=== PATIENT | male | born 1975 | race African-American/Black ===

== ENCOUNTER 2017-07-27 19:14 | Emergency (ER) | payer MEDICAID ==
[~2017-07-27] VITALS: Ht 193 cm; Wt 87.0 kg
[2017-07-27] MEDS ORDERED: IBUPROFEN 800MG TABLET PO ONE (19:45)
[2017-07-27 20:29] VITALS: BP 144/84
== END 2017-07-27 20:28 | disposition home or self-care (01) ==
LOC: ER 19:25
DX: R07.89 Other chest pain (principal); F10.10 Alcohol abuse, uncomplicated; Z02.89 Encounter for other administrative examinations; V89.2XXA Person injured in unspecified motor-vehicle accident, traffic, initial encounter; Y93.89 Activity, other specified; Y92.89 Other specified places as the place of occurrence of the external cause; Y99.8 Other external cause status
CPT/HCPCS: 71010; 93005; 99284; Z7610

== ENCOUNTER 2019-07-12 05:33 | Emergency (ER) | payer MEDICAID ==
[~2019-07-12] VITALS: Ht 182.9 cm; Wt 90.1 kg
[2019-07-12 07:05] VITALS: BP 116/82
== END 2019-07-12 07:06 | disposition home or self-care (01) ==
LOC: ER 05:33
DX: B99.9 Unspecified infectious disease (principal); H10.89 Other conjunctivitis; F17.200 Nicotine dependence, unspecified, uncomplicated; Z98.890 Other specified postprocedural states
CPT/HCPCS: 99283